=== PATIENT | male | born 1965 | race Two or more races ===

== ENCOUNTER 2023-07-21 16:34 | Emergency (ER) | payer OTHER ==
[~2023-07-21] VITALS: Ht 167.6 cm; Wt 74.8 kg
[2023-07-21] MEDS ORDERED: GLUMETZA1000 MG (16:40)
[2023-07-21] MEDS ORDERED: GLIMEPIRIDE4 MG (16:41)
[2023-07-21] MEDS ORDERED: LANTUS SOL100 UNIT/1 (16:41)
[2023-07-21] MEDS ORDERED: DICLOFENAC SODI75 MG PO (19:52)
== END 2023-07-21 20:11 | disposition home or self-care (01) ==
LOC: ER 16:34 → EDBD 17:21 → ER 20:11
DX: S80.02XA Contusion of left knee, initial encounter (principal); W18.30XA Fall on same level, unspecified, initial encounter; Y93.K1 Activity, walking an animal; Y92.9 Unspecified place or not applicable; Y99.9 Unspecified external cause status